=== PATIENT | female | born 1990 | race Caucasian/White ===

== ENCOUNTER 2020-05-19 22:19 | Inpatient (IN) | payer OTHER ==
[~2020-05-19] VITALS: Ht 165.1 cm; Wt 115.8 kg
[2020-05-19 22:42] VITALS: BP 126/67
[2020-05-19 23:20] LABS: HEMATOCRIT 32.3 % (36.0-47.0); HEMOGLOBIN 10.7 g/dl (12.0-15.5); MEAN CORPUSCULAR HEMOGLOBIN 29.3 pg (27.0-33.0); MEAN CORPUSCULAR HGB CONC 33.1 g/dl (32.0-36.5); MEAN CORPUSCULAR VOLUME 88.5 fl (80.0-96.0); PLATELET COUNT, AUTOMATED 179 10^3/uL (150-450); RED BLOOD COUNT 3.65 10^6/uL (4.00-5.40); WHITE BLOOD COUNT 11.9 10^3/uL (4.0-10.0)
[2020-05-20] VITALS (32 sets, daily range): BP systolic 88–125; BP diastolic 45–67
--- NOTE | 2020-05-20 00:44 | HPEPDOC ---
Obstetrical History & Physical General Date of Admission May 19, 2020 at 23:00 History of Present Illness 29-year-old 3 para 2 presents 37+ weeks with complaints of leakage of clear fluid. Chief Complaint: Rupture of membranes Information Provided By: Patient Age: 29 : 3 Livin Care Care: Good Care Dating Final EDC: Jun 06, 2020 Final EDC by: LMP, 1st trimester (US) EGA at Admission: 37 Past Medical History Past Obstetrical History : Past Obstetrical History: Multigravida Gestation: 40 Type of Delivery: Spontaneous Vaginal Del. 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 BREAST: . ABDOMEN: Gravid and non-tender to touch. FETUS: Is vertex (VTX) by sterile vaginal examination (SVE), fetus is vertex (VTX) by Oskar. HEART RATE: Regular rate and rhythm. LUNGS: Clear to auscultation (CTA). Laboratory Data 24H LABS Laboratory Tests 2 05/19/20 23:03: Serology Scanned Report Hepatitis B Testing 05/19/20 23:10: Nucleated Red Blood Cells % (auto) 0.0 CBC/BMP Laboratory Tests 05/19/20 23:10 Pertinent Laboratoy Data Blood Type: O+ RBC Antibody Screen: Negative HIV: Negative Hepatitis B: Negative Rapid Plasma Reagin: Nonreactive Rubella: Immune Chlamydia/Gonorrhea: Negative Group B Streptococcus: Negative Anatomy Ultrasound Placenta Location: Anterior Normal Anatomy: Yes Placenta Previa: No Steroid Therapy Steroid Therapy: No Vaginal Examination Dilation: 3 cm Effacement: 70% Station: -2 Cervical Consistency: Soft Cervical Position: Middle Presentation: Cephalic presentation (grossly ruptured. Nitrazine positive ) Assessment Variability: Moderate Accelerations: Positive Tocometer Contractions: Yes Frequency: every 2-5 min. Assessment/Plan Assessment 29-year-old 3 para 2 with 37 weeks with spontaneous rupture of membranes Reassuring status Admit to labor and delivery ,CBC, RPR type and screen Patient underwent counseling regards to medications procedures performed labor and delivery. I verbally consented for emergency surgery blood products anesthesia and patient desires to proceed with admission Plan Admit and orient. Rate Clerk and consent. Group B Streptococcus (GBS) negative. Labs and intravenous (IV) per unit protocol. Counseled on Pitocin and induction of labor (IOL). Anticipate normal spontaneous delivery (). C-S as appropriate. CHANCE OCHOA MD. May 20, 2020 00:44
[2020-05-20] MEDS ORDERED: BUTORPHANOL 2 MG/ML INJ (J0595) IV ONE (00:45)
[2020-05-20] MEDS ORDERED: PROMETHAZINE INJ 25 MG/ML VIAL (J2550) IV PRN (00:45)
[2020-05-20] MEDS ORDERED: FENTANYL 2MCG/ML ROPIVACAINE 0.2% IN 0.9% NACL 100ML IVBAG As Ordered ONE (12:50)
--- NOTE | 2020-05-20 12:54 | IPNPDOC ---
Obstetrical Progress Note Date of Service May 20, 2020 Subjective Labor Progress Note Received report from Dr. Harper at sign out and assumed care. S: Carolyn is a 29yo at 37+4wks was admitted early this AM for SROM last PM at 2200 ([id number]). She reports +FM and contractions, denies VB. At time of this note, pt reports contraction pain of 8-9/10 and desires an epidural. Objective O: VSS, afebrile, normotensive FHR 120s, moderate variability, + accels; there appears to have been an isolated variable with contraction when pt was lying on her back; once repositioned, variability resumed moderate and no further variables noted. CTX: unable to trace while pt lying on her side; pt reports q4 minutes VE at 0836: 5-6/60/-3 Vital Signs Date Time Temp Pulse Resp B/P (MAP) Pulse Ox O2 Delivery O2 Flow Rate FiO2 05/20/20 10:17 93 18 99/64 (76) 05/20/20 08:43 98.4 Assessment Heart Rate Tracing: Category I Sterile Vaginal Examination Postion/Presentation: Cephalic presentation Assessment and Plan Status: Reassuring Group B Streptococcus: Negative Anticipate: Vaginal Delivery Additional Comments A: 29yo at 37+4wks, active labor, SROM x14+ hours, VSS; Category 1 FHT P: Epidural now CEFM x2 Close monitoring of maternal/ status Expectant management Consider pitocin augmentation if no change at next exam Consult with OB as indicated Anticipate CHARLI RAMIREZ CNM May 20, 2020 12:54
[2020-05-20] MEDS ORDERED: diphenhydrAMINE 50MG/ML VIAL (J1200) IV PRN (13:05)
[2020-05-20] MEDS ORDERED: NALOXONE INJ 0.4MG/1ML VIAL (J2310 PER 1MG) IV PRN (13:05)
[2020-05-20] MEDS ORDERED: LACTATED RINGER'S 1000 ML IV PRN (13:05)
[2020-05-20] MEDS ORDERED: REFRIGERATOR IV KEYS XX PRN (13:05)
[2020-05-20] MEDS ORDERED: EPIDURAL COMMENT XX SCH (13:05)
[2020-05-20] MEDS ORDERED: ONDANSETRON 4MG/2ML VIAL IV PRN (13:05)
[2020-05-20] MEDS ORDERED: ePHEDrine SULFATE 25 MG/5 ML(5MG/ML) SYRINGE IV PRN (13:05)
[2020-05-20] MEDS ORDERED: EPIDURAL/PCA KEYS XX PRN (13:05)
[2020-05-20] MEDS: FENTANYL/ROPIVACAINE/NACL BAG 100 ML EPIDURAL SCH ×2 (13:05→23:05)
[2020-05-20] MEDS ORDERED: LR 1,000 ML IV SCH (15:00)
[2020-05-20] MEDS ORDERED: OXYTOCIN DRIP 30 UNITS in IV 1 EA IV SCH ×2 (15:00→16:00)
--- NOTE | 2020-05-20 15:09 | IPNPDOC ---
Text Note Date of Service The patient was seen on 05/20/20. NOTE S: Called to room for labor progress check. Pt recently received epidural and now c/o rectal pressure. O: VE: 8-9/90/-2 VSS FHR 125, moderate variability, + accels, late and variable declerations noted with contraction CTX have spaced out to 7-9 minutes apart A: 29yo at 37+4wks, active labor, category II FHT d/t late and variable decels P: Start interventions for late and variable decelerations Start pitocin per low dose protocol d/t spaced contractions Close maternal/ monitoring Consult with OB if indicated Anticipate VS,Fishbone, I+O VS, Fishbone, I+O Laboratory Tests 05/19/20 23:10 Vital Signs Date Time Temp Pulse Resp B/P (MAP) Pulse Ox O2 Delivery O2 Flow Rate FiO2 05/20/20 10:17 93 18 99/64 (76) 05/20/20 08:43 98.4 CHARLI RAMIREZ May 20, 2020 15:08
[2020-05-20] MEDS ORDERED: ACETAMINOPHEN 500 MG TAB PO PRN (15:45)
[2020-05-20] MEDS ORDERED: MOM 30ML SUSPENSION UDC PO PRN (15:45)
[2020-05-20] MEDS ORDERED: diphenhydrAMINE 25MG CAP PO PRN (15:45)
[2020-05-20] MEDS ORDERED: DIBUCAINE 1% OINTMENT 30GM TOP PRN (15:45)
[2020-05-20] MEDS ORDERED: ANUSOL HC CREAM 30GM TOP PRN (15:45)
[2020-05-20] MEDS ORDERED: METHYLERGONOVINE MALEATE 0.2 MG TAB PO PRN (15:45)
[2020-05-20] MEDS ORDERED: SIMETHICONE 80 MG CHEW TAB PO PRN (15:45)
[2020-05-20] MEDS ORDERED: MEASLES,MUMPS,RUBELLA VACCINE INJ (MMR-II) (90707) SC SCH (15:45)
[2020-05-20] MEDS ORDERED: CALCIUM CARBONATE 500 MG CHEW U/D PO PRN (15:45)
[2020-05-20] MEDS ORDERED: RHOGAM 300 MCG (1500 IU) INJ (J2790) IM SCH (15:45)
--- NOTE | 2020-05-20 17:31 | DNPDOC ---
[facility] Delivery Note Delivery Note DATE OF DELIVERY: 05/20/2020 at 1527. PREDELIVERY DIAGNOSIS: 37+4 weeks gestation with SROM/Labor. POST DELIVERY DIAGNOSIS: Delivered. PROCEDURE: INSIDE METER TESTER: ROXY Ramirez ANESTHESIA: Epidural ESTIMATED BLOOD LOSS: 350mL. FINDINGS: 7lbs 1oz (3200g) Male , Score 9/9, nuchal cord x1. DELIVERY SUMMARY: Carolyn is a 29yo G3 now P3003 s/p at 1527. She progressed expectantly to C/C/0 with strong urge to push. She effectively pushed to deliver a viable male infant over a protected perineum. head delivered SHE[place]TON and restituted to ROT. Tight nuchal x1 was able to be reduced at the perineum. Left anterior shoulder delivered with ease, followed by right posterior shoulder, then remainder of fetus delivered to maternal abdomen where he was dried and stimulated, strong/lusty cry. Once cord stopped pulsating, clamped x2 and cut by FOB; Cord blood collected for Type and Omer. Placenta delivered spontaneously and appeared intact, marginal cord insertion, 3VC. Fundus firm, EBL 350mL. Pitocin bolus started. Upon inspection of the vagina, perineum and cervix, small perineal and right labial abrasions noted, no repair required. Family boding well; initiated immediately; anticipate uncomplicated PP course. CHARLI RAMIREZ CNM May 20, 2020 17:25
[2020-05-20] MEDS: DOCUSATE SODIUM 100 MG CAP PO SCH (21:00)
[2020-05-21 06:00] VITALS: BP 105/52
[2020-05-21] MEDS: IBUPROFEN 800 MG TAB PO PRN (06:04)
[2020-05-21] MEDS: PRENATAL VITAMINS CHEWABLE TABLET PO SCH (07:16)
[2020-05-21] MEDS: DOCUSATE SODIUM 100 MG CAP PO SCH ×2 (07:16→20:34)
--- NOTE | 2020-05-21 07:24 | IPNPDOC ---
Progress Note Date of Service: May 21, 2020 Day#: 1 Progress Note SUBJECT: Patient is a 29-year-old 3 now Para 3 status post uncomplicated spontaneous vaginal delivery without post laceration requiring repair, doing well day # 1. She has been ambulating, voiding spontaneously without issue and tolerating regular diet. Breast feeding without issue. Reports lochia is like a normal period. Patient is ambulating well. Reports some cramping with . Has mild pain. OBJECTIVE: VITAL SIGNS: Within normal limits, afebrile. GENERAL: No acute distress HEENT: Mucous membranes are moist BREAST: Nontender, no erythema CARDIOVASCULAR: RRR RESPIRATORY: Bilaterally clear ABDOMINAL EXAMINATION: Soft, appropriate tenderness, nondistended, fundus -2 PERINEUM: Intact, minimal lochia EXTREMITIES: no edema, nontender ASSESSMENT: Patient is a 29-year-old 3 now Para 3 status post uncomplicated spontaneous vaginal delivery without post laceration requiring repair, doing well day # 1. Vitals within normal limits, afebrile, hemodynamically stable with no evidence of infection. PLAN: 1. Continue care. 2. Tylenol and Motrin for pain. 3. Encourage breast feeding and ambulation. VS, I&O, 24H, Fishbone Vital Signs/I&O Vital Signs Date Time Temp Pulse Resp B/P (MAP) Pulse Ox O2 Delivery O2 Flow Rate FiO2 05/20/20 17:32 80 101/59 (73) 05/20/20 17:05 16 05/20/20 12:29 98.4 Laboratory Data 24H LABS Laboratory Tests 2 05/19/20 23:03: Serology Scanned Report Hepatitis B Testing 05/19/20 23:10: Nucleated Red Blood Cells % (auto) 0.0, Syphilis Serology NONREACTIVE CBC/BMP Laboratory Tests 05/19/20 23:10 Maryellen Neri MD May 20, 2020 18:42
[2020-05-21 18:29] VITALS: BP 116/69
[2020-05-22 06:00] VITALS: BP 121/59
[2020-05-22] MEDS: IBUPROFEN 800 MG TAB PO PRN (12:02)
[2020-05-22] MEDS: DOCUSATE SODIUM 100 MG CAP PO SCH (12:02)
[2020-05-22] MEDS: PRENATAL VITAMINS CHEWABLE TABLET PO SCH (12:02)
--- NOTE | 2020-05-27 11:52 | IPN ---
DATE: 05/21/2020 The patient requested circumcision of her male . After discussing risks and benefits of circumcision, the medical and nonmedical indications, the penile block, and aftercare, expressed understanding of penile elias, aftercare, and bleeding, signed the consent form. All questions were answered. A 20-minute discussion. We await the clearance by the ethylene plant operator. TASHI
== END 2020-05-22 12:05 | disposition home or self-care (01) | DRG 807 ==
LOC: M LDO 22:19 → M LDI 23:00 → M OBS 05-20 18:52
PROVIDERS: ADMIT Obstetrics & Gynecology; ATTEND Obstetrics & Gynecology
PROC: 10E0XZZ Delivery of Products of Conception, External Approach (ICD-10-PCS; principal; 2020-05-20)
DX: O69.1XX0 Labor and delivery complicated by cord around neck, with compression, not applicable or unspecified (principal); Z37.0 Single live birth; Z3A.37 37 weeks gestation of pregnancy